=== PATIENT | male | born 1950 | race Caucasian/White ===

== ENCOUNTER → 2021-05-04 | Outpatient (CLI) | payer OTHER | END | disposition home or self-care (01) | LOC: CARD 12:27 | PROVIDERS: ATTEND Student in an Organized Health Care Education/Training Program | DX: I34.0 Nonrheumatic mitral (valve) insufficiency (principal); I51.7 Cardiomegaly ==

== ENCOUNTER 2022-09-16 19:01 | Emergency (ER) | payer OTHER ==
[~2022-09-16] VITALS: Ht 177.8 cm; Wt 88.5 kg
[2022-09-16] MEDS ORDERED: IRON325 M1 PO (19:20)
[2022-09-16] MEDS ORDERED: FLOMAX0.4 MG PO (19:20)
[2022-09-16] MEDS ORDERED: TORSEMIDE20 MG PO (19:20)
[2022-09-16] MEDS ORDERED: SODIUM BICARBO650 MG PO (19:21)
[2022-09-16] MEDS ORDERED: Imdur SA60 MG PO (19:21)
[2022-09-16] MEDS ORDERED: TOPROL XL25 MG PO (19:22)
[2022-09-16] MEDS ORDERED: XIFAXAN200 M1 PO (19:23)
[2022-09-16] MEDS ORDERED: OMEPRAZOLE MAGN20 MG PO (19:23)
[2022-09-16] MEDS ORDERED: JARDIANCE25 MG PO (19:24)
[2022-09-16] MEDS ORDERED: PLAVIX75 M1 PO (19:24)
[2022-09-16] MEDS ORDERED: ZYLOPRIM100 MG PO (19:24)
[2022-09-16 19:49] LABS: INTERNATIONAL NORM RATIO 1.1 (2.0-3.5)
[2022-09-16] MEDS ORDERED: VIBRAMYCIN100 MG PO (22:00)
[2022-09-16] MEDS ORDERED: PERCOCET 5-3251 EACH PO (22:00)
== END 2022-09-16 22:07 | disposition home or self-care (01) ==
LOC: ED 19:01
PROVIDERS: Nurse Practitioner Family
DX: S01.112A Laceration without foreign body of left eyelid and periocular area, initial encounter (principal); S61.412A Laceration without foreign body of left hand, initial encounter; S20.212A Contusion of left front wall of thorax, initial encounter; Z88.1 Allergy status to other antibiotic agents; Z79.899 Other long term (current) drug therapy; W18.09XA Striking against other object with subsequent fall, initial encounter; Y93.89 Activity, other specified; Y92.89 Other specified places as the place of occurrence of the external cause; Y99.8 Other external cause status